=== PATIENT | female | born 1995 | race Caucasian/White ===

== ENCOUNTER 2018-03-26 17:08 | Emergency (ER) | payer OTHER, SELFPAY ==
--- NOTE | 2018-03-26 17:10 | ED.ALLEREA ---
HPI - Allergic Reaction <RED Clup - Last Filed: 03/26/18 21:30> General Chief complaint: Skin/Abscess/Foreign Body Stated complaint: thinks allergic reaction x4 days to a dress Time Seen by Provider: 03/26/18 17:09 Source: patient Mode of arrival: ambulatory Limitations: no limitations History of Present Illness HPI narrative: Healthy 22-year-old female that is a nonsmoker here for complaint of having a rash to her torso area for the last 4 days. She states that is due to her having a address that she tried on with sequence 4 days ago and is having rash since that timeframe. She has been using Benadryl for the rash which has been helping the itch. She denies any shortness of breath. No tightness in her throat. She denies any changes in her diet, hygiene or any medications. She also has a complaint of having a rash to her left groin area over the past month. She denies any fevers or chills. No other symptoms or concerns at this time. Related Data Previous Rx's Medication Instructions Recorded mupirocin 1 applictn TOP TID 7 Days #15 gram 03/26/18 Allergies Allergy/AdvReac Type Severity Reaction Status Date / Time No Known Drug Allergies Allergy Verified 03/26/18 17:31 Review of Systems <RED Culp - Last Filed: 03/26/18 21:30> Constitutional Denies chills, Denies fever(s), Denies lethargy and Denies weakness Eyes Denies change in vision, Denies eye discharge, Denies irritation and Denies loss of vision ENT Ears, Nose, Mouth, and Throat: Denies change in voice, Denies neck pain and Denies sore throat Cardiovascular Denies chest pain, Denies irregular heart rhythm, Denies lightheadedness, Denies palpitations, Denies dyspnea, Denies dyspnea on exertion and Denies orthopnea Respiratory Denies cough, Denies dyspnea, Denies dyspnea on exertion and Denies wheezing Gastrointestinal Gastrointestinal: Denies abdominal pain, Denies change in bowel habits, Denies diarrhea, Denies nausea and Denies vomiting Genitourinary Denies hematuria, Denies flank pain, Denies urinary incontinence and Denies urinary urgency Musculoskeletal Denies neck pain Integumentary/Breasts Denies pruritus, Denies erythema, Denies rash and Denies wounds Neurologic Denies confusion, Denies loss of vision and Denies weakness Psychiatric Denies anxiety, Denies confusion, Denies depression, Denies homicidal ideation and Denies suicidal ideation Endocrine Denies palpitations Hematologic/Lymphatic Denies easy bruising Allergic/Immunologic Reports urticaria and Denies wheezing Exam <RED Culp - Last Filed: 03/26/18 21:30> Initial Vital Signs Initial Vital Signs: Vital Signs Temperature 98.3 F 03/26/18 17:28 Pulse Rate 80 03/26/18 17:28 Respiratory Rate 16 03/26/18 17:28 Blood Pressure 126/79 03/26/18 17:28 Pulse Oximetry 100 03/26/18 17:28 Const General: cooperative and well developed Nutritional Appearance: well nourished Orientation: alert, awake, oriented x3 and not confused HENMT Mouth: oral mucosae normal and moist mucous membranes Eyes Conjunctivae: conjunctivae normal Sclera: sclerae normal Pupils: PERRL EOM: EOM intact bilaterally Resp Effort & Inspection: normal respiratory effort, able to speak in complete sentences, no respiratory distress and no use of accessory muscles Auscultation: clear to auscultation bilaterally, no rales, no rhonchi and no wheezes Cardio Rate: regular rate Rhythm: regular rhythm Heart Sounds: no click, no gallops, no murmurs and no rubs GI Inspection: non-distended Palpation: soft, no hepatosplenomegaly, No guarding, No pulsatile mass and No tender Auscultation: normal bowel sounds Skin General: No jaundice and No petechiae Other: No rash appreciated to the torso on exam. No urticaria. Macular papular rash with small pustule seen into the left groin area/left upper thigh Neuro General: alert, oriented x3, gait normal and no focal motor deficits Speech: speech normal <Lucio Combs DO - Last Filed: 03/30/18 20:44> Initial Vital Signs Initial Vital Signs: Vital Signs Temperature 98.3 F 03/26/18 17:28 Pulse Rate 80 03/26/18 17:28 Respiratory Rate 16 03/26/18 17:28 Blood Pressure 126/79 03/26/18 17:28 Pulse Oximetry 100 03/26/18 17:28 Course <RED Culp - Last Filed: 03/26/18 21:30> Vital Signs - 8 hr 03/26/18 17:28 Temperature 98.3 F Pulse Rate 80 Respiratory Rate 16 Blood Pressure 126/79 Pulse Oximetry 100 <Lucio Combs DO - Last Filed: 03/30/18 20:44> Vital Signs - 8 hr 03/26/18 17:28 Temperature 98.3 F Pulse Rate 80 Respiratory Rate 16 Blood Pressure 126/79 Pulse Oximetry 100 MDM - Allergic Reaction <RED Culp - Last Filed: 03/26/18 21:30> MDM Narrative Medical decision making narrative: No urticaria or rash seen on exam. Benadryl may have reduced symptoms so a time exam no urticaria is appreciated. Doubtful that a dress that she were 4 days is causing urticaria if that is the rash that she is reporting differential of a viral illness. Will have patient continue using antihistamines as recommend using Jo Ann or Claritin during the day and may use Benadryl at night prior to bed to limit the sedation. A rash to her left groin area appears as folliculitis. Will recommend that she limit her shaving to that area to limit the folliculitis. She is prescribed mupirocin ointment. Follow up with primary care provider next week. For any worsening symptoms return to the emergency room. Discharge Plan Departure Patient Disposition: Home Clinical Impression: Folliculitis, Rash in adult Discharge Date/Time: 03/26/18 18:01 Interventions: ED Discharge Assessment Last Done: 03/26/18 18:01 Instructions: DI for Folliculitis Activity Restrictions/Additional Instructions: No apparent rashes seen to the torso today on exam. Rash may have subsided prior to exam after the Benadryl use. Differential diagnosis of a viral syndrome. Rash to the left groin area is due to folliculitis. Urine prescribed antibiotic ointment called mupirocin use as directed. Limit shaving to that area until healed. For continued rash to the torso use antihistamines may use [id number] Claritin or Jo Ann during the day to limit the sedation of Benadryl. Doubtful that the dress is causing rash after 4 days after wearing it so keep an eye out for possible triggers in the environment. For any worsening symptoms return to the emergency room. Prescriptions: New mupirocin 2 % ointment 1 applictn TOP TID 7 Days Qty: 15 RF: 0 Referrals: [facility] [Provider Group] <Lucio Combs, DO - Last Filed: 03/30/18 20:44> Cosign ED Attending Raya Attestation: I was immediately available in the department for consultation. Documentation has been reviewed. I agree with assessment and plan.
[2018-03-26 17:28] VITALS: BP 126/79; PULSE 80; RESP 16; TEMP 36.8; O2SAT 100
== END 2018-03-26 18:01 | disposition home or self-care (01) ==
PROVIDERS: Emergency Provider Nurse Practitioner Family
DX: L73.9 Follicular disorder, unspecified (principal); R21 Rash and other nonspecific skin eruption
CPT/HCPCS: 99282

== ENCOUNTER 2019-03-09 22:40 | Emergency (ER) | payer OTHER, SELFPAY ==
[2019-03-09 22:42] VITALS: BP 129/74; PULSE 70; RESP 16; TEMP 36.8; O2SAT 99; BMI 21.7
--- NOTE | 2019-03-09 22:42 | ED.GENADULT ---
HPI - General Adult General Chief complaint: Extremity Injury, Upper Stated complaint: fall, landed on right arm, pain Time Seen by Provider: 03/09/19 22:42 Source: patient Mode of arrival: Ambulatory Limitations: no limitations History of Present Illness HPI narrative: 23-year-old female here for evaluation of right elbow injury/right upper arm injury. Patient states that she slipped and fell on her elbow shortly prior to arrival. Has had pain with bending it since then. Has not tried anything for symptoms prior to arrival Related Data Allergies Allergy/AdvReac Type Severity Reaction Status Date / Time No Known Drug Allergies Allergy Verified 03/26/18 17:31 Review of Systems Constitutional Constitutional: Denies fatigue ENT Ears, Nose, Mouth, and Throat: Denies disequilibrium Cardiovascular Cardiovascular: Denies chest pain and Denies dyspnea Respiratory Respiratory: Denies dyspnea Musculoskeletal Comments: Right elbow/arm pain Integumentary/Breasts Skin/Breast: Denies rash Neurologic Neurologic: Denies disequilibrium Endocrine Endocrine: Denies fatigue Hematologic/Lymphatic Hematologic/Lymphatic: Denies easy bleeding and Denies easy bruising Patient History Medical History Healthy adult (Acute) Social History Smoking Status: Never smoker alcohol intake frequency: 0-2 drinks per day Substance Use Type: does not use Exam Initial Vital Signs Initial Vital Signs: Vital Signs Temperature 98.2 F 03/09/19 22:42 Pulse Rate 70 03/09/19 22:42 Respiratory Rate 16 03/09/19 22:42 Blood Pressure 129/74 03/09/19 22:42 Pulse Oximetry 99 03/09/19 22:42 Const General: cooperative and comfortable Orientation: alert, awake and oriented x3 Resp Effort & Inspection: normal respiratory effort Cardio Rate: regular rate Pulses: radial pulses present on the left Skin Lesions: no lesions Rashes: no rashes Neuro Sensory Exam: no sensory deficits noted Extrem Other: Right shoulder has no pain with movement. Does have pain in the right humerus close to the elbow. Is able to extend at the elbow but is unable to flex 90? secondary to pain. Is able to pronate and supinate. Right wrist and right hand unremarkable Psych Appearance: grossly normal and well kempt Course Orders Ordered: ED Orders 03/09/19 22:47 XR shoulder RT min 2V Stat 03/09/19 22:58 XR elbow RT min 3V Stat Vital Signs Vital signs: Vital Signs - 8 hr 03/09/19 22:42 03/09/19 23:59 Temperature 98.2 F Pulse Rate 70 69 Respiratory Rate 16 14 Blood Pressure 129/74 118/60 Pulse Oximetry 99 98 Medical Decision Making Imaging Data Shoulder x-ray: Radiologist's impression: No fractures, no dislocation Elbow x-ray: Radiologist's impression: No fractures or dislocation MDM Narrative Medical decision making narrative: Neurovascularly intact, no fractures dislocation on the x-rays, patient was given return precautions and follow-up instructions. She expressed understanding and agreement plan Discharge Plan Departure Patient Disposition: Home Clinical Impression: Elbow sprain Qualifiers: Encounter type: initial encounter Laterality: right Qualified Code(s): S53.401A - Unspecified sprain of right elbow, initial encounter Discharge Date/Time: 03/09/19 23:59 Instructions: How To Perform RICE (Rest, Ice, Compress, Elevate) Activity Restrictions/Additional Instructions: You can take Tylenol and/or ibuprofen for any pain. You have no restrictions on your activity. Contact your primary provider for follow-up.
--- NOTE | 2019-03-09 22:47 | DI.RAD.S_ITS ---
PROCEDURE: XR SHOULDER RT MIN 2V INDICATIONS: pain after fall TECHNIQUE: 3 views of the shoulder were acquired. COMPARISON: [facility], CR, XR ELBOW RT MIN 3V, 03/09/2019, 23:15. FINDINGS: Bones: No fractures or dislocations. No suspicious bony lesions. Visualized ribs appear intact. Soft tissues: No suspicious soft tissue calcifications. The visualized lung demonstrates an unremarkable appearance. IMPRESSION: Negative plain films. Note: No significant discrepancy from the preliminary report. Dictated by: Chico Honeycutt M.D. on 03/10/2019 at 8:38 Approved by: Chico Honeycutt M.D. on 03/10/2019 at 8:38
--- NOTE | 2019-03-09 22:58 | DI.RAD.S_ITS ---
PROCEDURE: XR ELBOW RT MIN 3V INDICATIONS: fall with pain TECHNIQUE: 3 views of the elbow were acquired. COMPARISON: [facility], CR, XR SHOULDER RT MIN 2V, 03/09/2019, 22:45. FINDINGS: Bones: No fractures or dislocations. No suspicious bony lesions. Soft tissues: No elbow joint effusion. No suspicious soft tissue calcifications. IMPRESSION: Normal plain films, without fracture or dislocation. Note: No significant discrepancy from the preliminary report. Dictated by: Chico Honeycutt M.D. on 03/10/2019 at 8:39 Approved by: Chico Honeycutt M.D. on 03/10/2019 at 8:40
--- NOTE | 2019-03-09 23:58 | PC.NURSE ---
WINTER wrap applied to right elbow, CMS intact, cap refill <2 secs. Verbalizes understanding of use of WINTER wrap and ice pack.
[2019-03-09 23:59] VITALS: BP 118/60; PULSE 69; RESP 14; O2SAT 98
== END 2019-03-09 23:59 | disposition home or self-care (01) ==
PROVIDERS: Emergency Provider Emergency Medicine
DX: S53.401A Unspecified sprain of right elbow, initial encounter (principal); W01.0XXA Fall on same level from slipping, tripping and stumbling without subsequent striking against object, initial encounter
CPT/HCPCS: 73030; 73080; 99282; 99283

== ENCOUNTER 2021-04-14 14:52 | Emergency (ER) | payer OTHER, SELFPAY ==
[2021-04-14 14:57] VITALS: BP 122/83; PULSE 99; RESP 14; TEMP 37; O2SAT 98; BMI 23.3
[2021-04-14 15:23] LABS: COVID19 -Nasal RAPID Negative (Negative)
[2021-04-14 17:25] VITALS: BP 126/75; PULSE 90; O2SAT 100
--- NOTE | 2021-04-14 18:43 | ED.URI ---
HPI - URI/Sore Throat General Chief Complaint: Upper Respiratory Symptoms Stated Complaint: thinks sinus infection Time Seen by Provider: 04/14/21 18:04 Source: patient Mode of arrival: Ambulatory History of Present Illness HPI Narrative: 25-year-old female nonsmoker with noncontributory medical history presents with significant other and a chief complaint of day or 2 of runny nose, nasal congestion, minimally sore throat, dry hacking. She has had no fever chills and denies any nausea, vomiting or diarrhea. She states that a deep breath seems to elicit a cough. She denies any purulence drainage. She has had no hemoptysis. Related Data Previous Rx's Medication Instructions Recorded benzonatate 200 mg capsule 200 mg PO BID PRN #20 cap 04/14/21 Allergies Allergy/AdvReac Type Severity Reaction Status Date / Time No Known Drug Allergies Allergy Verified 04/14/21 14:57 Review of Systems Review of Systems Narrative: GENERAL: Denies chills, fatigue, malaise, fever, sweats. HEENT: See HPI RESPIRATORY: See HPI CARDIOVASCULAR: Denies chest pain, palpitations, orthopnea, edema, GASTROINTESTINAL: Denies nausea, vomiting, abdominal pain, diarrhea, constipation, melena. : Denies dysuria, frequency, incontinence, hematuria, urinary retention. MUSCULOSKELETAL: denies weakness, joint pain, or bony pain SKIN: Denies rash, skin lesions, or other NEUROLOGIC: Denies weakness, headache, numbness, change in speech, confusion, seizures, incoordination. PSYCHIATRIC: No concerning psychosocial issues. 12 point review of systems is negative except for those stated above Patient History Medical History Healthy adult Social History Smoking Status: Never smoker Smoking Status: Never smoker alcohol intake frequency: holidays/special occasions only Substance Use Type: does not use Exam Narrative Exam Narrative: GENERAL: [25 year old patient appears stated age. Well-developed patient, in mild distress. No increased work of breathing, tachypnea, use of accessory muscles or hypoxemia HEAD: Atraumatic. Normocephalic. EYES: Pupils equal round and reactive. Extraocular motions intact. No scleral icterus. No injection or drainage. ENT: Nose without bleeding, purulent drainage. Throat without erythema, tonsillar hypertrophy or exudate. Airway patent. NECK: Trachea midline. Non tender CARDIOVASCULAR: Regular rate and rhythm without murmurs, gallops, or rubs. RESPIRATORY: Clear to auscultation. Breath sounds equal bilaterally. No wheezes, rales, or rhonchi. GASTROINTESTINAL: Abdomen soft, non-tender, nondistended. EXTREMITIES: No edema or joint tenderness. BACK: Nontender without deformity or crepitance. No flank tenderness. NEURO: AOx3. SKIN: No rash or erythema of visible areas Initial Vital Signs Initial Vital Signs: Vital Signs Temperature 98.6 F 04/14/21 14:57 Pulse Rate 99 H 04/14/21 14:57 Respiratory Rate 14 04/14/21 14:57 Blood Pressure 122/83 04/14/21 14:57 Pulse Oximetry 98 04/14/21 14:57 Course Orders Ordered: Discontinued Medications Albuterol (Albuterol Hfa Prepack) [facility] Stop: 04/14/21 20:19 Last Admin: 04/14/21 20:27 Dose: 1 box Documented by: AMY Vital Signs Vital signs: Vital Signs - 8 hr 04/14/21 20:27 04/14/21 20:59 Pulse Rate 86 95 H Respiratory Rate 15 18 Blood Pressure 114/64 Pulse Oximetry 100 98 MDM - URI/Sore Throat Lab Data Labs: Lab Results 04/14/21 Range/Units 15:00 SARS-CoV-2 (PCR) Negative (Negative) Discharge Plan Departure Patient Disposition: Home Clinical Impression: Upper respiratory infection Instructions: DI for Viral Upper Respiratory Infection -- Adult Activity Restrictions/Additional Instructions: *You have been diagnosed with [viral upper respiratory infection, there is no evidence of the need for antibiotics. Your COVID swab was negative. *What to do: *Please continue to take your regular medications as directed. [ x] New medication prescriptions sent to your pharmacy: [[facility] in [place] ] [ ] New medication written as a paper prescription [ ] No new medications given *Please follow up with your primary care provider in 2-3 days, call for an appointment. Let them know you were seen in the Emergency Department and that we ask that you be seen in follow up. We will electronically transmit a record of today's note if your PCP is in our system *If you do not have a primary care provider please contact the [facility] Resource line at [phone]. They will ask some questions about your medical history and help get you set up with a doctor in the community. *Return to Emergency Department if you should have any new, worsening or concerning symptoms, such as [fever greater than 101 F, shaking chills, worsening pain, persistent vomiting or other bothersome symptoms] Prescriptions: New benzonatate 200 mg capsule 200 mg PO BID PRN (Reason: cough) Qty: 20 0RF
[2021-04-14 20:27] VITALS: PULSE 86; RESP 15; O2SAT 100
[2021-04-14] MEDS: ALBUTEROL HFA PREPACK 1 BOX MISC (20:27)
[2021-04-14 20:59] VITALS: BP 114/64; PULSE 95; RESP 18; O2SAT 98
== END 2021-04-14 21:04 | disposition home or self-care (01) ==
PROVIDERS: Emergency Medicine; Emergency Provider Emergency Medicine
DX: J06.9 Acute upper respiratory infection, unspecified (principal); Z20.822 Contact with and (suspected) exposure to COVID-19
CPT/HCPCS: 87635; 94640; 99281; 99283; C9803